=== PATIENT | male | born 2000 | race Caucasian/White ===

== ENCOUNTER 2021-01-05 23:36 | Emergency (ER) | payer OTHER ==
[2021-01-06] MEDS ORDERED: IBUPROFEN600 MG PO (00:15)
[2021-01-06] MEDS ORDERED: BACITRAYCIN PLU28 GM TP (00:15)
== END 2021-01-06 00:35 | disposition home or self-care (01) ==
LOC: ER1 23:36
DX: L55.9 Sunburn, unspecified (principal)
CPT/HCPCS: 99282